=== PATIENT | female | born 1980 | race Caucasian/White ===

== ENCOUNTER 2017-03-11 10:21 | Inpatient (IN) | payer OTHER ==
[~2017-03-11] VITALS: Ht 162.6 cm; Wt 86.2 kg
[2017-03-11] MEDS ORDERED: PRENATAL TABLE1 EAC1 PO (10:59)
== END 2017-03-12 09:11 | disposition home or self-care (01) | DRG 782 ==
LOC: LDR 10:21
PROC: 4A1HXCZ Monitoring of Products of Conception, Cardiac Rate, External Approach (ICD-10-PCS; principal; 2017-03-11)
PROC: BY4CZZZ Ultrasonography of Second Trimester, Single Fetus (ICD-10-PCS; 2017-03-11)
PROC: BU46ZZZ Ultrasonography of Uterus (ICD-10-PCS; 2017-03-11)
DX: O44.12 Complete placenta previa with hemorrhage, second trimester (principal); Z3A.23 23 weeks gestation of pregnancy

== ENCOUNTER 2017-04-06 03:47 | Inpatient (IN) | payer OTHER ==
[~2017-04-06] VITALS: Ht 162.6 cm; Wt 91.2 kg
[~2017-04-06 03:47] MED LIST: PRENATAL TABLE1 EAC1 PO
== END 2017-04-09 09:21 | DRG 778 ==
LOC: OB/GYN 03:47 → LDR 03:47 → OB/GYN 04-07 11:33
PROC: 4A1HXCZ Monitoring of Products of Conception, Cardiac Rate, External Approach (ICD-10-PCS; principal; 2017-04-06)
DX: O60.03 Preterm labor without delivery, third trimester (principal); O44.02 Complete placenta previa NOS or without hemorrhage, second trimester; Z3A.26 26 weeks gestation of pregnancy

== ENCOUNTER 2017-05-19 04:16 | Inpatient (IN) | payer OTHER ==
[~2017-05-19] VITALS: Ht 162.6 cm; Wt 2.3 kg
== END 2017-06-01 14:16 | DRG 765 ==
LOC: LDR 04:16 → OB/GYN 04:16 → SURG-SUITE 05-30 11:08
PROVIDERS: Obstetrics & Gynecology Maternal & Fetal Medicine
PROC: 4A1HXCZ Monitoring of Products of Conception, Cardiac Rate, External Approach (ICD-10-PCS; 2017-05-19)
PROC: BY4FZZZ Ultrasonography of Third Trimester, Single Fetus (ICD-10-PCS; 2017-05-20)
PROC: BW3GZZZ Magnetic Resonance Imaging (MRI) of Pelvic Region (ICD-10-PCS; 2017-05-21)
PROC: 10D00Z1 Extraction of Products of Conception, Low, Open Approach (ICD-10-PCS; principal; 2017-05-29 14:30)
PROC: 30233N1 Transfusion of Nonautologous Red Blood Cells into Peripheral Vein, Percutaneous Approach (ICD-10-PCS; 2017-05-30)
DX: O44.13 Complete placenta previa with hemorrhage, third trimester (principal); D62 Acute posthemorrhagic anemia; O32.2XX0 Maternal care for transverse and oblique lie, not applicable or unspecified; O99.013 Anemia complicating pregnancy, third trimester; Z37.0 Single live birth; Z3A.33 33 weeks gestation of pregnancy
CPT/HCPCS: 72197

== ENCOUNTER 2017-06-03 01:17 | Emergency (ER) | payer OTHER ==
[~2017-06-03] VITALS: Ht 162.6 cm; Wt 77.1 kg
[2017-06-03] MEDS ORDERED: PERCOCET 10-321 EACH (01:27)
== END 2017-06-03 06:26 | disposition home or self-care (01) ==
LOC: ER 01:17
DX: K59.00 Constipation, unspecified (principal)